=== PATIENT | male | born 1960 | race Caucasian/White ===

== ENCOUNTER 2022-03-22 20:12 | Emergency (ER) | payer MEDICARE, MEDICAID, SELFPAY ==
[2022-03-22 20:18] VITALS: PULSE 96; RESP 16; TEMP 36.6; O2SAT 98
--- NOTE | 2022-03-22 20:21 | CTR_ITS ---
PROCEDURE INFORMATION: Exam: CT Head Without Contrast Exam date and time: 03/22/2022 8:28 PM Age: 62 years old Clinical indication: Altered mental status/memory loss; Additional info: AMS TECHNIQUE: Imaging protocol: Computed tomography of the head without contrast. Radiation optimization: All CT scans at this facility use at least one of these dose optimization techniques: automated exposure control; mA and/or kV adjustment per patient size (includes targeted exams where dose is matched to clinical indication); or iterative reconstruction. COMPARISON: No relevant prior studies available. RADIATION DOSE METRICS: Total DLP (mGy-cm): 908 FINDINGS: Brain: No hemorrhage. No edema. Mild diffuse cerebral atrophy. No significant white matter disease. No mass effect. Cerebral ventricles: No ventriculomegaly. Paranasal sinuses: Visualized sinuses are unremarkable. No fluid levels. Mastoid air cells: Visualized mastoid air cells are well aerated. Bones/joints: Unremarkable. No acute fracture. Soft tissues: Unremarkable. CT/CT head wo con* [id number] IMPRESSION: No acute intracranial abnormality.
--- NOTE | 2022-03-22 20:21 | XRR_ITS ---
PROCEDURE INFORMATION: Exam: XR Chest Exam date and time: 03/22/2022 8:42 PM Age: 62 years old Clinical indication: Other: AMS; Additional info: Dyspnea TECHNIQUE: Imaging protocol: Radiologic exam of the chest. Views: 1 view. COMPARISON: No relevant prior studies available. FINDINGS: Lungs: Unremarkable. No consolidation. Pleural spaces: Unremarkable. No pleural effusion. No pneumothorax. Heart/Mediastinum: Unremarkable. No cardiomegaly. Bones/joints: Unremarkable. XR/XR chest 1V portable [id number] IMPRESSION: No acute findings.
--- NOTE | 2022-03-22 20:24 | ED_ITS ---
HPI - General Adult General: Chief complaint: Altered Mental Status Stated complaint: AMS Time Seen by Provider: 03/22/22 20:20 History of Present Illness: Patient is a 62-year-old male with history of basal intellectual challenge who presents emergency room for concerns of difficulty with chewing. Patient points to his mouth saying that he has difficulties chewing. Patient denies any nausea or vomiting, tooth ache, but reports that it feels funny to chew. Patient denies any abdominal complaints, no chest pain, shortness breath, palpitation, nausea/vomiting, fever/chills, or other focal complaints at this time. Patient denies any difficulty swallowing. No other focal complaints at this time. Onset: earlier today Duration:ongoing Location:jail Severity:mild Associated symptoms: Deny chest pain, dyspnea, nausea, rash, palpitations or vomiting Review of Systems Const: Denies: fever(s) or chills Eyes: Denies: change in vision ENMT: Reports: other (+difficulty chewing); Denies: mouth pain Card: Denies: chest pain or palpitations Resp: Denies: dyspnea or non-productive cough GI: Denies: abdominal pain, nausea, vomiting or diarrhea : Denies: dysuria Musc: Denies: extremity pain Skin/Breast: Denies: rash or new lesions Neuro: Denies: weakness in extremities Psych: Reports: other (Normal mood) Brendon/Lymph: Denies: easy bruising PFSH ED PFSH: Medical History (Updated 03/22/22 @ 21:39 by Odilon Sharif MD) Intellectual disability Social History (Updated 03/22/22 @ 21:39 by Odilon Sharif MD) Smoking and tobacco status: never smoked Alcohol intake: never Substance/Drug Use: never Physical Exam Const: COMMON NORMALS: alert HENMT: COMMON NORMALS: atraumatic HEAD & SCALP: atraumatic MOUTH: moist mucous membranes not abnormal OTHER: No trismus, range of motion of the jaw is intact, no visible tooth deformity or trauma Eye: COMMON NORMALS: EOMs intact bilaterally and conjunctivae normal CONJUNCTIVA: Yes conjunctivae normal Neck/C-Spine: COMMON NORMALS: full ROM and supple Resp: COMMON NORMALS: normal respiratory effort and clear to auscultation bilaterally AUSCULTATION: clear to auscultation bilaterally Cardio: COMMON NORMALS: regular rate RATE: regular rate GI: COMMON NORMALS: Soft to palpation and non-tender PALPATION: Yes Soft to palpation Extremity: COMMON NORMALS: full ROM Neuro: SENSORIUM/ORIENTATION: Yes alert MOTOR EXAM: No Abnormal motor strength present and Other motor observations present (no focal motor deficits) Psych: COMMON NORMALS: speech normal SPEECH: Yes normal speech MOOD & AFFECT: Yes euthymic mood Course Vital Signs: Vital signs: Vital Signs Temperature 97.9 F 03/22/22 20:18 Pulse Rate 96 03/22/22 20:18 Respiratory Rate 16 03/22/22 20:18 Pulse Oximetry 98 03/22/22 20:18 MDM - General Adult Medical Decision Making Patient is a 62-year-old male with history of basal intellectual challenge who presents emergency room for concerns of difficulty with chewing. Patient is hemodynamically stable. Lab work-up are largely within normal limit. Patient's not have sodium 127, potassium 3.4. Patient has no signs of facial trauma or tooth trauma. Patient is able to tolerate p.o. without any difficulty in the ER. Troponin with x2 with delta less than 5. EKG is nonischemic. Patient is no complaints of chest pain. He is noted have sodium 127. CT head is negative for any acute finding. X-ray chest appears to be clear. The present time, patient's been able to tolerate p.o. With no complaints of mouth pain. Patient is no acute distress. Rx salt tablet for hyponatriemia Disposition: Discharge. long-term counseled regarding diagnostic impression, treatment plan. long-term given ED strict return precautions to return for continuation, worsening, or development of new symptoms. Instructed to f/u w/ PCP regarding symptoms today. long-term verbalized understanding. Lab Data : 03/22/22 20:55 03/22/22 20:55 Radiology Impressions Chest X-Ray 03/22/22 20:21 IMPRESSION: No acute findings. Head CT 03/22/22 20:21 IMPRESSION: No acute intracranial abnormality. Laboratory Results WBC 5.4 10^3/uL (4.0-10.0) 03/22/22 20:55 RBC 3.93 10^6/uL (4.1-5.3) L 03/22/22 20:55 Hgb 11.5 g/dL (11.7-16.6) L 03/22/22 20:55 Hct 33.8 % (42.0-52.0) L 03/22/22 20:55 MCV 86.0 fl (80-94) 03/22/22 20:55 MCH 29.3 pg (28.0-34.0) 03/22/22 20:55 MCHC 34.0 g/dL (30.0-36.0) 03/22/22 20:55 RDW 12.2 % (12.1-15.1) 03/22/22 20:55 Plt Count 257 10^3/cmm (130-400) 03/22/22 20:55 MPV 9.3 fL (7.4-10.4) 03/22/22 20:55 Neut % (Auto) 60.3 % 03/22/22 20:55 Lymph % (Auto) 26.1 % 03/22/22 20:55 Hardee % (Auto) 11.7 % 03/22/22 20:55 Eos % (Auto) 0.9 % 03/22/22 20: Baso % (Auto) 0.4 % 03/22/22 20:55 Neut # (Auto) 3.26 10^3/uL (1.8-7.7) 03/22/22 20:55 Lymph # (Auto) 1.4 10^3/uL (0.8-4.8) 03/22/22 20:55 [place]ee # (Auto) 0.6 10^3/uL (0.2-0.9) 03/22/22 20:55 Eos # (Auto) 0.1 10^3/uL (0.0-0.8) 03/22/22 20: Baso # (Auto) 0.0 10^3/uL (0.0-0.1) 03/22/22 20:55 Nucleated RBC % (auto) 0 % 03/22/22: Nucleated RBCs # 0.0 /100WBC 03/22/22 20:55 Sodium 127 mmol/L (136-145) L 03/22/22 20:55 Potassium 3.4 mmol/L (3.5-5.1) L 03/22/22 20:55 Chloride 92 mmol/L (98-107) L 03/22/22 20:55 Carbon Dioxide 25 mmol/L (22-29) 03/22/22 20:55 Anion Gap 13.4 (5-19) 03/22/22 20:55 BUN 13 mg/dL (8-23) 03/22/22 20:55 Creatinine 0.7 mg/dL (0.7-1.2) 03/22/22 20:55 GFR Calculation 115.0 mL/min (90-130) 03/22/22 20:55 Glucose 97 mg/dL (65-115) 03/22/22 20:55 Calculated Osmolality 264 mOsm/kg (285-295) L 03/22/22 20:55 Calcium 9.0 mg/dL (8.5-10.5) 03/22/22 20:55 Total Bilirubin 0.4 mg/dL (0.15-1.2) 03/22/22 20:55 AST 39 U/L (0-40) 03/22/22 20:55 ALT 23 U/L (0-41) 03/22/22 20:55 Alkaline Phosphatase 64 U/L (40-130) 03/22/22 20:55 Troponin T Baseline 37 ng/L (0-15) H 03/22/22 20:55 Troponin T 120 Minute 39.89 ng/L (0-15) H 03/22/22 22:13 Delta Troponin T 2.89 ABS# (0-10) 03/22/22 22:13 Total Protein 6.8 g/dL (6.6-8.7) 03/22/22 20:55 Albumin 3.8 g/dL (3.5-5.2) 03/22/22 20:55 Globulin 3.0 g/dL (1.3-4.6) 03/22/22 20:55 Lipase 42 U/L (13-60) 03/22/22 20:55 TSH 0.07 uIU/mL (0.27-4.20) L 03/22/22 20:55 Free T4 2.41 ng/dL (0.82-1.77) H 03/22/22 20:55 Salicylates 0.6 mg/dL (3-10) L 03/22/22 20:55 Acetaminophen < 5.0 ug/mL (10-30) L 03/22/22 20:55 Imaging Data Other Imaging: Radiologist's impression: [address] [place] [address] CT Scan Report Signed Patient: Albert Campo Unit #: [id number] : 1960 Age/Sex: 62 / M ADM Date: 03/22/22 Loc: ER Room/Bed: Attending Dr: Ordering Provider/Ordering MD: Odilon Sharif MD Date of Service: 03/22/22 Procedure(s): CT head wo con* [id number] Accession Number(s): [id number] Report Number: [id number] PROCEDURE INFORMATION: Exam: CT Head Without Contrast Exam date and time: 03/22/2022 8:28 PM Age: 62 years old Clinical indication: Altered mental status/memory loss; Additional info: AMS TECHNIQUE: Imaging protocol: Computed tomography of the head without contrast. Radiation optimization: All CT scans at this facility use at least one of these dose optimization techniques: automated exposure control; mA and/or kV adjustment per patient size (includes targeted exams where dose is matched to clinical indication); or iterative reconstruction. COMPARISON: No relevant prior studies available. RADIATION DOSE METRICS: Total DLP (mGy-cm): 908 FINDINGS: Brain: No hemorrhage. No edema. Mild diffuse cerebral atrophy. No significant white matter disease. No mass effect. Cerebral ventricles: No ventriculomegaly. Paranasal sinuses: Visualized sinuses are unremarkable. No fluid levels. Mastoid air cells: Visualized mastoid air cells are well aerated. Bones/joints: Unremarkable. No acute fracture. Soft tissues: Unremarkable. CT/CT head wo con* [id number] IMPRESSION: No acute intracranial abnormality. ? Dictated By: Timothy Ambriz DO Signed By: Timothy Ambriz DO Signed Date/Time: 03/22/222105 DD/ 27 Albert Campo??62??M??1960 ? Allergy/Adv: No Known Allergies Close Head CT (Signed) Timtohy Ambriz - 03/22/22 Chest X-Ray (Signed) Timothy Ambriz - 03/22/22 Launch?[facility] [address] [place] [address] XRay Report Signed Patient: Albert Campo Unit #: [id number] : 1960 Age/Sex: 62 / M ADM Date: 03/22/22 Loc: ER Room/Bed: Attending Dr: Ordering Provider/Ordering MD: Odilon Sharif MD Date of Service: 03/22/22 Procedure(s): XR chest 1V portable [id number] Accession Number(s): [id number] Report Number: [id number] PROCEDURE INFORMATION: Exam: XR Chest Exam date and time: 03/22/2022 8:42 PM Age: 62 years old Clinical indication: Other: AMS; Additional info: Dyspnea TECHNIQUE: Imaging protocol: Radiologic exam of the chest. Views: 1 view. COMPARISON: No relevant prior studies available. FINDINGS: Lungs: Unremarkable. No consolidation. Pleural spaces: Unremarkable. No pleural effusion. No pneumothorax. Heart/Mediastinum: Unremarkable. No cardiomegaly. Bones/joints: Unremarkable. XR/XR chest 1V portable [id number] IMPRESSION: No acute findings. ? Dictated By: Timothy Ambriz DO Signed By: Timothy Ambriz DO Signed Date/Time: 03/22/222103 DD/ 41 Discharge Plan Discharge Patient Disposition: Home Clinical Impression: Decrease in appetite Condition: Stable Discharge Orders: Discharge ED (Routine); Ordered 03/22/22 Ordered By: Odilon Sharif Discharge Diet: Advance as tolerated Discharge Activity: Increase activity as tolerated Activity Restrictions/Additional Instructions: Come back if you have any new or concerning issues. Coding Level of Care Code ED Dietary Services Manager for Chg Fwd Exam Comprehensive
--- NOTE | 2022-03-22 20:41 | ECG_ITS ---
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 Measurements Intervals [place] Rate: 81 P: 67 [place]: 162 QRS: 35 QRSD: 99 T: 55 QT: 379 QTc: 441 Interpretive Statements SINUS RHYTHM No previous ECG available for comparison Electronically Signed On 03-24-2022 22:02:30 CDT by Jose Luis Hutchison M.D. [id number]
[2022-03-22 21:06] LABS: Basophils % 0.4 %; Eosinophils # 0.1 10^3/uL (0.0-0.8); Eosinophils % 0.9 %; Hematocrit 33.8 % (42.0-52.0); Hemoglobin 11.5 g/dL (11.7-16.6); Lymphocytes # 1.4 10^3/uL (0.8-4.8); Lymphocytes % 26.1 %; Mean Corpuscular Hemoglobin 29.3 pg (28.0-34.0); Mean Platelet Volume 9.3 fL (7.4-10.4); Monocytes # 0.6 10^3/uL (0.2-0.9); Monocytes % 11.7 %; Neutrophils # 3.26 10^3/uL (1.8-7.7); Neutrophils % 60.3 %; Nucleated Red Blood Cells % 0 %; Platelet Count 257 10^3/cmm (130-400); Red Blood Count 3.93 10^6/uL (4.1-5.3); Red Cell Distribution Width 12.2 % (12.1-15.1); White Blood Count 5.4 10^3/uL (4.0-10.0)
[2022-03-22 21:23] LABS: Troponin(5th) Baseline 37 ng/L (0-15)
[2022-03-22 21:32] LABS: Alanine Aminotransferase 23 U/L (0-41); Albumin Level 3.8 g/dL (3.5-5.2); Alkaline Phosphatase 64 U/L (40-130); Anion Gap 13.4 (5-19); Aspartate Amino Transferase 39 U/L (0-40); Blood Urea Nitrogen 13 mg/dL (8-23); Carbon Dioxide 25 mmol/L (22-29); Chloride 92 mmol/L (98-107); Glucose 97 mg/dL (65-115); Lipase 42 U/L (13-60); Osmolality Calculated 264 mOsm/kg (285-295); Potassium 3.4 mmol/L (3.5-5.1); Salicylate 0.6 mg/dL (3-10); Sodium 127 mmol/L (136-145); Thyroid Stimulating Hormone 0.07 uIU/mL (0.27-4.20); Total Bilirubin 0.4 mg/dL (0.15-1.2); Total Protein 6.8 g/dL (6.6-8.7)
[2022-03-22 21:34] LABS: Acetaminophen < 5.0 ug/mL (10-30)
--- NOTE | 2022-03-22 22:12 | PC.NURSE ---
DONAVAN Johnson from facility called for update, updated on POC to return to facility, no acute changes seen on head CT
--- NOTE | 2022-03-22 22:14 | ECG_ITS ---
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 Measurements Intervals [place] Rate: 68 P: 54 [place]: 191 QRS: 35 QRSD: 107 T: 42 QT: 383 QTc: 410 Interpretive Statements SINUS RHYTHM Compared to ECG 03/22/2022 20:41:09 No significant changes Electronically Signed On 03-24-2022 22:11:26 CDT by Jose Luis Hutchison M.D. [id number]
[2022-03-22 22:18] LABS: Free T4 Free Thyroxine 2.41 ng/dL (0.82-1.77)
[2022-03-22 22:44] LABS: Troponin 5 2HR 39.89 ng/L (0-15)
[2022-03-22 22:47] LABS: Troponin 5 2HR Delta 2.89 ABS# (0-10)
[2022-03-22 23:11] VITALS: BP 145/89; PULSE 75; RESP 15; TEMP 36.6; O2SAT 96
--- NOTE | 2022-03-22 23:13 | PC.NURSE ---
Patient sitting up in wheel chair waiting for transportation for return, patient awake responds appropriately
[2022-03-23 00:25] VITALS: PULSE 75; RESP 16; TEMP 36.6; O2SAT 96
== END 2022-03-23 00:27 | disposition home or self-care (01) ==
PROVIDERS: Emergency Provider Emergency Medicine
DX: R63.0 Anorexia (principal)
CPT/HCPCS: 36415; 70450; 71045; 80053; 80307; 83690; 84439; 84443; 84484; 85025; 93005; 99285

== ENCOUNTER 2022-04-03 17:23 | Emergency (ER) | payer MEDICARE, MEDICAID, SELFPAY ==
--- NOTE | 2022-04-03 17:28 | XRR_ITS ---
PROCEDURE INFORMATION: Exam: XR Chest Exam date and time: 04/03/2022 5:45 PM Age: 62 years old Clinical indication: Dyspnea; Additional info: Dyspena TECHNIQUE: Imaging protocol: Radiologic exam of the chest. Views: 1 view. COMPARISON: CR (CHEST, ) 03/22/2022 8:42 PM FINDINGS: Lungs: Unremarkable. No consolidation. Pleural spaces: Unremarkable. No pleural effusion. No pneumothorax. Heart/Mediastinum: Unremarkable. No cardiomegaly. Bones/joints: Unremarkable. XR/XR chest 1V portable [id number] IMPRESSION: No acute findings.
[2022-04-03 17:38] VITALS: BP 121/75; PULSE 80; RESP 16; TEMP 36.2; O2SAT 98
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
[2022-04-03 18:06] LABS: Basophils % 0.6 %; Eosinophils # 0.1 10^3/uL (0.0-0.8); Eosinophils % 1.1 %; Hematocrit 34.1 % (42.0-52.0); Hemoglobin 11.2 g/dL (11.7-16.6); Lymphocytes # 1.4 10^3/uL (0.8-4.8); Lymphocytes % 26.4 %; Mean Corpuscular HGB Conc 32.8 g/dL (30.0-36.0); Mean Corpuscular Hemoglobin 28.5 pg (28.0-34.0); Mean Corpuscular Volume 86.8 fl (80-94); Mean Platelet Volume 9.8 fL (7.4-10.4); Monocytes % 17.7 %; Neutrophils # 2.89 10^3/uL (1.8-7.7); Neutrophils % 53.8 %; Nucleated Red Blood Cells % 0 %; Platelet Count 229 10^3/cmm (130-400); Red Blood Count 3.93 10^6/uL (4.1-5.3); Red Cell Distribution Width 12.5 % (12.1-15.1); White Blood Count 5.4 10^3/uL (4.0-10.0)
--- NOTE | 2022-04-03 18:10 | ECG_ITS ---
[facility] Test Date: 2022-04-03 Pat Name: Albert Campo Department: Room: Gender: Male Child Monitor: : 1960 Requested By: Pietro Dc Order Number: [id number] Sanchez MD: Raul Wolfe M.D. Measurements Intervals [place] Rate: 78 P: 72 PA: 172 QRS: 30 QRSD: 100 T: 56 QT: 373 QTc: 425 Interpretive Statements SINUS RHYTHM Compared to ECG 03/22/2022 22:14:46 No significant changes Electronically Signed On 04-04-2022 7:07:38 CDT by Raul Wolfe M.D. [email or web address] Fashion Loungesinging river gulfportConnectM Technology Solutionslake county memorial [facility].B[employer] Environmental/store/[id number]
[2022-04-03 18:32] VITALS: BP 129/85; PULSE 79; RESP 16; O2SAT 98
[2022-04-03 19:00] LABS: Acetaminophen < 5.0 ug/mL (10-30); Alanine Aminotransferase 14 U/L (0-41); Albumin Level 3.8 g/dL (3.5-5.2); Alcohol Level < 10 mg/dL (0-10); Alkaline Phosphatase 61 U/L (40-130); Aspartate Amino Transferase 20 U/L (0-40); Blood Urea Nitrogen 12 mg/dL (8-23); Carbon Dioxide 26 mmol/L (22-29); Chloride 99 mmol/L (98-107); Glomerular Filtration Rate 86.1 mL/min (90-130); Glucose 113 mg/dL (65-115); Osmolality Calculated 281 mOsm/kg (285-295); Salicylate < 0.3 mg/dL (3-10); Sodium 135 mmol/L (136-145); Thyroid Stimulating Hormone 0.04 uIU/mL (0.27-4.20); Total Bilirubin 0.2 mg/dL (0.15-1.2); Total Protein 6.8 g/dL (6.6-8.7)
[2022-04-03 19:45] LABS: Add Urine Microscopic? NO; Charge for UA Resulting for Rev
[2022-04-03 19:52] LABS: Bilirubin Urine Neg (Negative); Blood Urine Neg (Negative); Glucose Urine UA Norm (Normal); Ketones Urine Negative (Negative); Leukocyte Esterase Urine Negative (Negative); Nitrate Urine Negative (Negative); Protein Urine Neg (Negative); Specific Gravity, Urine 1.005 (1.005-1.030); Urine Appearance Clear (CLEAR); Urine Color Yellow (Yellow); Urobilinogen Urine Norm (Negative); pH Urine 7 (5-7)
[2022-04-03 20:00] LABS: Amphetamines Screen Urine Negative (Negative); Barbiturates Screen Urine Negative (Negative); Benzodiazepines Screen Urine Negative (Negative); Cocaine Screen Urine Negative (Negative); Opiate Screen Urine Negative (Negative); PCP Screen Urine Negative (Negative); THC Screen Urine Negative (Negative)
--- NOTE | 2022-04-03 20:14 | PC.NURSE ---
report called to [facility]. spoke with gabby and she advised they would call their transportation.
[2022-04-03] MEDS: LORazepam 1 mg Tablet PO (20:19)
== END 2022-04-03 21:55 | disposition home or self-care (01) ==
PROVIDERS: Family Medicine; Emergency Provider Emergency Medicine
DX: R45.6 Violent behavior (principal)
CPT/HCPCS: 71045; 80053; 80306; 80307; 81003; 84443; 85025; 93005; 99285

== ENCOUNTER → 2023-01-21 08:09 | Outpatient (BNVA) | payer MEDICARE, MEDICAID, SELFPAY | PROVIDERS: Visit Provider Podiatrist Foot & Ankle Surgery | DX: I73.9 Peripheral vascular disease, unspecified (principal); L60.3 Nail dystrophy | CPT/HCPCS: 11721; 99203 ==

== ENCOUNTER → 2023-06-10 10:16 | Outpatient (BNVA) | payer MEDICARE, MEDICAID, SELFPAY | PROVIDERS: PCP Family Medicine; Visit Provider Physician Assistant | DX: M51.36 Other intervertebral disc degeneration, lumbar region (principal); K56.41 Fecal impaction | CPT/HCPCS: 72100; 99203 ==

== ENCOUNTER → 2023-09-17 09:04 | Outpatient (BNVA) | payer MEDICARE, MEDICAID, SELFPAY | PROVIDERS: PCP Family Medicine; Visit Provider Podiatrist Foot & Ankle Surgery | DX: I73.9 Peripheral vascular disease, unspecified (principal); L60.3 Nail dystrophy | CPT/HCPCS: 99213 ==

== ENCOUNTER → 2023-12-09 14:33 | Outpatient (BNVA) | payer MEDICARE, MEDICAID, SELFPAY | PROVIDERS: PCP Family Medicine; Visit Provider Podiatrist Foot & Ankle Surgery | DX: I73.9 Peripheral vascular disease, unspecified; L60.3 Nail dystrophy | CPT/HCPCS: 73630; 99213 ==

== ENCOUNTER 2023-12-23 14:10 | Observation (INO) | payer MEDICARE, MEDICAID, SELFPAY ==
[2023-12-23 14:11] VITALS: BP 132/79; PULSE 82; RESP 16; TEMP 36.8; O2SAT 95; BMI 28.3
--- NOTE | 2023-12-23 14:14 | CT_ITS ---
WS: [id number] CT HEAD TECHNIQUE: Noncontrast CT of the head obtained from the skullbase to the vertex. CLINICAL INFORMATION: seizure COMPARISON: CT 03/22/2022 DLP: 1047.[address] scans at [facility] use at least one of these dose optimization techniques: automated e xposure control; mA and/or kV adjustment per patient size (includes targeted exams where dose is matc hed to clinical indication); or iterative reconstruction. FINDINGS: No evidence of intracranial hemorrhage or mass effect. Ventricular system and basal cisterns are kitchen nt. Mild small vessel changes with mild parenchymal volume loss. No extra-axial fluid collections. No evidence of mass or mass effect. Vascular calcification. Mild mucosal thickening paranasal sinuses. Chronic opacification of the LEFT greater than RIGHT masto id air cells and LEFT middle ear. CT/CT head wo con* 01789 IMPRESSION: 1. No evidence of intracranial hemorrhage or mass effect. 2. Mild small vessel changes. Mild parenchymal volume loss. 3. Chronic opacification of the LEFT greater than RIGHT mastoid air cells and LEFT middle ear. 4. No acute intracranial findings.
--- NOTE | 2023-12-23 14:15 | ECG_ITS ---
[facility] Test Date: 2023-12-23 Pat Name: Albert Campo Department: Room: Gender: Male Microwave Radio Technician: : 1960 Requested By: Boogie Bronson Order Number: [id number] Sanchez MD: Nino Bryant M.D. Measurements Intervals [place] Rate: 81 P: 81 AL: 195 QRS: 45 QRSD: 108 T: 67 QT: 360 QTc: 418 Interpretive Statements SINUS RHYTHM Compared to ECG 04/03/2022 18:10:26 No significant changes Electronically Signed On 12-23-2023 21:38:21 CDT by Nino Bryant M.D. [email or web address] Networkcleveland clinic avon hospitalFusion Sheep/store/NU/[id number] f
--- NOTE | 2023-12-23 14:19 | ED_ITS ---
HPI - Seizure 2 General: Chief Complaint: Seizure Stated Complaint: seizure Time Seen by Provider: 12/23/23 14:11 Source: patient Mode of arrival: ambulatory Limitations: no limitations History of Present Illness: HPI Narrative: 63-year-old male is here from nursing [facility] he has a history of autism along with intellectual disabilities he had a witnessed seizure at the [facility] per [facility] [place] stated postictal but he is now at his baseline he is answering my questions appropriately he has no complaints no recent known illness. Associated symptoms: Deny chest pain, chills or fever(s) Review of Systems 2 Const: Denies: fever(s), chills, body aches or change in appetite Eyes: Denies: blurry vision or eye discomfort ENMT: Denies: throat pain or dental pain Card: Denies: chest pain Resp: Denies: dyspnea GI: Denies: abdominal pain, nausea, vomiting or diarrhea Musc: Denies: neck pain or back pain Skin/Breast: Denies: rash Neuro: Reports: seizure-like activity; Denies: headache(s) PFSH ED 2 PFSH: Medical History Intellectual disability Social History Smoking and tobacco/nicotine status: never used tobacco/nicotine Alcohol intake: never Substance/Drug Use: never Physical Exam 2 Const: COMMON NORMALS: no acute distress, patient oriented x3 and healthy appearing HENMT: COMMON NORMALS: normocephalic and atraumatic HEAD & SCALP: n ormocephalic and atraumatic Eye: COMMON NORMALS: Equal, round and reactive pupils present and EOMs intact bilaterally PUPIL: Yes Equal, round and reactive pupils present Neck/C-Spine: COMMON NORMALS: full ROM and supple Chest: COMMONS NORMALS: normal inspection of the chest and normal palpation of entire chest wall Resp: COMMON NORMALS: normal respiratory effort, No retractions, No use of accessory muscles and clear to auscultation bilaterally AUSCULTATION: clear to auscultation bilaterally Cardio: COMMON NORMALS: regular rate, regular rhythm and No murmurs present (Cardio) RATE: regular rate RHYTHM: regular rhythm GI: COMMON NORMALS: Normal to inspection, nondistended, normoactive bowel sounds present, Soft to palpation, non-tender and no masses PALPATION: Yes Soft to palpation Extremity: COMMON NORMALS: normal to inspection and full ROM Neuro: COMMON NORMALS: patient oriented x3, moves all extremities and no focal motor deficits Psych: COMMON NORMALS: mental status grossly normal, Normal thought process present and cooperative THOUGHT PROCESS: Normal thought process present Skin: COMMON NORMALS: no rashes or lesions noted and no wounds GENERAL SKIN EXAM: no rashes or lesions noted Course 2 Vital Signs: Vital signs: Vital Signs Temperature 98.3 F 12/23/23 14:11 Pulse Rate 84 12/23/23 14:22 Respiratory Rate 16 12/23/23 14:22 Blood Pressure 132/79 12/23/23 14:22 Pulse Oximetry 97 12/23/23 14:22 Oxygen Delivery Me thod Room Air 12/23/23 14:22 MDM - Seizure MDM Narrative Medical decision making narrative: Patient presents here from [facility] after a seizure he is hyponatremic it can cause a seizure he is at his baseline currently will give him IV fluids spoke to the hospitalist will admit at this time. His Depakote level is in therapeutic range Lab Data 12/23/23 14:27 12/23/23 14:27 Labs: Radiology Impressions Head CT 12/23/23 14:14 IMPRESSION: 1. No evidence of intracranial hemorrhage or mass effect. 2. Mild small vessel changes. Mild parenchymal volume loss. 3. Chronic opacification of the LEFT greater than RIGHT mastoid air cells and LEFT middle ear. 4. No acute intracranial findings. Laboratory Results WBC 14.10 10^3/uL (3.29-11.43) H 12/23/23 14:27 RBC 3.55 10^6/uL (3.85-5.65) L 12/23/23 14:27 Hgb 10.70 g/dL (11.27-16.99) L 12/23/23 14:27 Hct 31.1 % (37-53) L 12/23/23 14:27 MCV 87.6 fl (82-101) 12/23/23 14:27 MCH 30.1 pg (27-33) 12/23/23 14: MCHC 34.4 g/dL (30-55) 12/23/23 14:27 RDW 12.8 % (12.1-15.1) 12/23/23 14:27 Plt Count 220 10^3/cmm (157-399) 12/23/23 14:27 MPV 8.6 fL (7.4-10.4) 12/23/23 14:27 Neut % (Auto) 85.4 % 12/23/23 14:27 Lymph % (Auto) 7.8 % 12/23/23 14:27 [place] % (Auto) 5.9 % 12/23/23 14:27 Eos % (Auto) 0.2 % 12/23/23 14:27 Baso % (Auto) 0.3 % 12/23/23 14:27 Neut # (Auto) 12.04 10^3/uL (1.8-7.7) H 12/23/23 14: Lymph # (Auto) 1.1 10^3/uL (0.8-4.8) 12/23/23 14:27 [place] # (Auto) 0.8 10^3/uL (0.2-0.9) 12/23/23 14: Eos # (Auto) 0.0 10^3/uL (0.0-0.8) 12/23/23 14:27 Baso # (Auto) 0.0 10^3/uL (0.0-0.1) 12/23/23 14: Nucleated RBC % (auto) 0 % 12/23/23 14: Nucleated RBCs # 0.0 /100WBC 12/23/23 14:27 Sodium 123 mmol/L (136-145) L 12/23/23 14:27 Potassium 4.0 mmol/L (3.5-5.1) 12/23/23 14:27 Chloride 89 mmol/L (98-107) L 12/23/23 14:27 Carbon Dioxide 22 mmol/L (22-29) 12/23/23 14:27 Anion Gap 16.0 (5-19) 12/23/23 14:27 BUN 19 mg/dL (8-23) 12/23/23 14:27 Creatinine 1.1 mg/dL (0.7-1.2) 12/23/23 14:27 GFR Calculation 68.1 mL/min (90-130) L 12/23/23 14:27 Glucose 87 mg/dL (65-115) 12/23/23 14:27 Calculated Osmolality 258 mOsm/kg (285-295) L 12/23/23 14:27 Calcium 8.4 mg/dL (8.5-10.5) L 12/23/23 14:27 Total Bilirubin 0.4 mg/dL (0.15-1.2) 12/23/23 14:27 AST 18 U/L (0-40) 12/23/23 14:27 ALT 10 U/L (0-41) 12/23/23 14:27 Alkaline Phosphatase 61 U/L (40-130) 12/23/23 14:27 Total Protein 6.7 g/dL (6.6-8.7) 12/23/23 14:27 Albumin 3.8 g/dL (3.5-5.2) 12/23/23 14:27 Globulin 2.9 g/dL (1.3-4.6) 12/23/23 14:27 Valproic Acid 52.3 ug/mL (50-100) 12/23/23 14:27 All radiology interpretation(s) finalized by discharge EKG Data EKG 1: Attestation: I personally reviewed and interpreted this EKG as follows: EKG interpretation date: 12/23/23 EKG interpretation time: 14:15 Interpretation: nsr hr [address] or t wave abnormalities qrs 108 qtc 397 Discharge Plan Discharge Patient Disposition: Admitted As Inpatient Clinical Impression: Seizure, Hyponatremia Condition: Stable Coding Level of Care Code ED Chemist Food for Nova Meek
[2023-12-23 14:22] VITALS: BP 132/79; PULSE 84; RESP 16; O2SAT 97
[2023-12-23 14:37] LABS: Basophils % 0.3 %; Eosinophils % 0.2 %; Hematocrit 31.1 % (37-53); Lymphocytes # 1.1 10^3/uL (0.8-4.8); Lymphocytes % 7.8 %; Mean Corpuscular HGB Conc 34.4 g/dL (30-55); Mean Corpuscular Hemoglobin 30.1 pg (27-33); Mean Corpuscular Volume 87.6 fl (82-101); Mean Platelet Volume 8.6 fL (7.4-10.4); Monocytes # 0.8 10^3/uL (0.2-0.9); Monocytes % 5.9 %; Neutrophils # 12.04 10^3/uL (1.8-7.7); Neutrophils % 85.4 %; Nucleated Red Blood Cells % 0 %; Platelet Count 220 10^3/cmm (157-399); Red Blood Count 3.55 10^6/uL (3.85-5.65); Red Cell Distribution Width 12.8 % (12.1-15.1)
[2023-12-23 14:52] LABS: Alanine Aminotransferase 10 U/L (0-41); Albumin Level 3.8 g/dL (3.5-5.2); Alkaline Phosphatase 61 U/L (40-130); Aspartate Amino Transferase 18 U/L (0-40); Blood Urea Nitrogen 19 mg/dL (8-23); Calcium 8.4 mg/dL (8.5-10.5); Carbon Dioxide 22 mmol/L (22-29); Chloride 89 mmol/L (98-107); Creatinine Clr Calc Pharmacy 67.5733; Globulin 2.9 g/dL (1.3-4.6); Glomerular Filtration Rate 68.1 mL/min (90-130); Glucose 87 mg/dL (65-115); Osmolality Calculated 258 mOsm/kg (285-295); Sodium 123 mmol/L (136-145); Total Bilirubin 0.4 mg/dL (0.15-1.2); Total Protein 6.7 g/dL (6.6-8.7); Valproic Acid Level 52.3 ug/mL (50-100)
[2023-12-23] MEDS: sodium chloride 0.9% 1,000 ML 999 ML IV (15:24)
[2023-12-23 16:00] VITALS: BP 137/75; PULSE 82; O2SAT 98
[2023-12-23 16:46] VITALS: BMI 26.8
[2023-12-23 16:57] VITALS: BP 137/75; PULSE 82; RESP 16; TEMP 36.8; O2SAT 98
--- NOTE | 2023-12-23 18:26 | P.HP_ITS ---
Providers/Chief Complaint 2 Admitting Physician: Donte Barbosa Primary Care Provider: Matt Mae MD Chief Complaint: seizure History of Present Illness 63-year-old gentleman with history of neurodegenerative disorders, autism, intellectual disability, without known history of epilepsy, on Depakote, was brought in after an episode of seizure. In ER also noted to have hyponatremia, sodium 123. He is unable to provide review of systems or history. Going off on tangents, stating that he had urinated himself yesterday though he was not supposed to, states he got a new T-shirt and new pants. Review of Systems 2 General: Reports: ROS unobtainable due to medical condition Medications/Allergies Home Medications Medication Instructions Recorded Confirmed Last Taken Type celecoxib 200 mg capsule (Celebrex) 200 mg PO DAILY 09/17/23 12/23/23 Unknown History levothyroxine 125 mcg capsule 125 mcg PO DAILY hypothyroidism 09/17/23 12/23/23 Unknown History Senna Plus 2 tab PO DAILY Constipation 12/23/23 12/23/23 Unknown History acetaminophen 325 mg PO Q6H PRN Pain 12/23/23 12/23/23 Unknown History acetaminophen 650 mg PO BEDTIME Low Back Pain 12/23/23 12/23/23 Unknown History amitriptyline 25 mg tablet 50 mg PO BEDTIME 12/23/23 12/23/23 Unknown History calcium polycarbophil 625 mg 625 mg PO DAILY constipation 12/23/23 12/23/23 Unknown History tablet (FiberCon) cetirizine 10 mg tablet (Zyrtec) 10 mg PO DAILY 12/23/23 12/23/23 Unknown History divalproex 500 mg tablet,extended 1,000 mg PO BEDTIME 12/23/23 12/23/23 Unknown History release 24 hr famotidine 20 mg tablet 20 mg PO BID 12/23/23 12/23/23 Unknown History fluticasone propionate 50 1 spray intranasal DAILY Season 12/23/23 12/23/23 Unknown History mcg/actuation nasal Allergic Rhinitis spray,suspension gabapentin 300 mg capsule 300 mg PO BID 12/23/23 12/23/23 Unknown History lorazepam 1 mg tablet 1 mg PO TID 12/23/23 12/23/23 Unknown History melatonin 5 mg tablet 10 mg PO BEDTIME Insomnia 12/23/23 12/23/23 Unknown History naloxone 2 mg/2 mL syringe kit 2 mg IM PRN PRN Opiod Overdose 12/23/23 12/23/23 Unknown History olanzapine 20 mg tablet 20 mg PO BEDTIME Schizophrenia 12/23/23 12/23/23 Unknown History polyethylene glycol 3350 17 17 g PO DAILY Constipation 12/23/23 12/23/23 Unknown History gram/dose oral powder (Miralax) sodium chloride 1,000 mg soluble 1,000 mg PO TID Hyponatremia 12/23/23 12/23/23 Unknown History tablet vilazodone 40 mg tablet 40 mg PO AC Anxiety 12/23/23 12/23/23 Unknown History Allergies Allergy/AdvReac Type Severity Reaction Status Date / Time No Known Allergies Allergy Verified 12/09/23 14:12 PFSH Acute 2 PFSH: Medical History Autistic disorder Schizophrenia, unspecified Tinea unguium Chronic kidney disease (CKD) Chronic pulmonary edema Intellectual disability Social History Smoking and tobacco/nicotine status: never used tobacco/nicotine Alcohol intake: never Substance/Drug Use: never Vitals/I&O/Wt Last Vital Signs Temp 98.3 F 12/23/23 16:57 Pulse 82 12/23/23 16:57 Resp 16 12/23/23 16:57 BP 137/75 12/23/23 16:57 Pulse Ox 98 12/23/23 16:57 O2 Del Method Room Air 12/23/23 16:00 12/23/23 12/23/23 12/23/23 06:59 14:59 22:59 Intake Total 1000 / 1000 Balance 1000 / 1000 Weight last 48 hrs Weight 75.296 kg Weight 77.111 kg Physical Exam 2 Narrative: Sitting up in bed. Interacts to a limited extent, going off on tangents. Limited cooperation with history/exam. Const: COMMON NORMALS: alert ORIENTATION/CONSCIOUSNESS: Yes awake HENMT: COMMON NORMALS: oropharynx normal Neck/C-Spine: COMMON NORMALS: no JVD Resp: COMMON NORMALS: normal respiratory effort and clear to auscultation bilaterally AUSCULTATION: clear to auscultation bilaterally Cardio: COMMON NORMALS: no JVD, regular rhythm, S1 normal heart sound present, S2 normal heart sound present and No murmurs present (Cardio) RHYTHM: regular rhythm HEART SOUNDS: S1 normal heart sound present and S2 normal heart sound present GI: COMMON NORMALS: Normal to inspection, nondistended, normoactive bowel sounds present, Soft to palpation and non-tender PALPATION: Yes Soft to palpation Extremity: COMMON NORMALS: no joint enlargement and no pedal edema Neuro: COMMON NORMALS: moves all extremities SENSORIUM/ORIENTATION: Yes alert Skin: COMMON NORMALS: no rashes or lesions noted GENERAL SKIN EXAM: no rashes or lesions noted Data 12/23/23 14:27 12/23/23 14:27 A&P Assessment and plan (1) Hyponatremia: Severe hyponatremia sodium low at 123 with systemic symptoms, unknown duration, previously 135 back in March. Does not appear to have a clear cause, difficult to state whether hyponatremia is complicated by seizure, possible. He does appear to be on sodium chloride tablets 1000 mg p[address] of the head without evidence for intracranial hemorrhage or mass effect. No acute intracranial findings. Incidentally noted chronic opacification of left greater than right mastoid air cells and left middle ear. Will request urine sodium, urine osmolality. Reviewed vitals, CBC, CMP, head, ER note, discussed with ER provider. He appears to have good appetite. Has been requesting for food. Resume regular diet. Resume sodium chloride 1 g p.o. 3 times daily. Reviewed Depakote level, therapeutic. Received sodium chloride challenge. Hold off additional fluids for now to avoid rapid changes in sodium. Recheck sodium level. Monitor intake output for any polydipsia. Consider effect of amitriptyline, olanzapine, vilazodone. (2) Seizure: Reviewed Depakote level. Continue Depakote. Unclear reason for seizure. Would suspect possible complication of hyponatremia. Would benefit from follow-up MRI, EEG, follow-up with neurology, however, not sure that he will be able to cooperate with MRI. Plan Intellectual disability, autism, schizophrenia, continue Ativan, olanzapine, vilazodone. Amitriptyline. Reported severe behavioral disturbances without medications. CKD: Reassess kidney function Chronic pulmonary edema: Monitor oxygenation Attestations 2 Medical Necessity Statement*: Place in observation for additional assessment management of severe symptomatic hyponatremia with systemic symptoms, seizure in a gentleman with intellectual stability, autism, schizophrenia. Diagnoses Hyponatremia E87.1 Seizure R56.9
[2023-12-23 19:06] LABS: Thyroid Stimulating Hormone 46.12 uIU/mL (0.27-4.20)
[2023-12-23 20:00] VITALS: BP 154/82; PULSE 101; RESP 18; TEMP 36.3; O2SAT 96
[2023-12-23] MEDS: divalproex ER 500 mg Tablet (24H) 1000 MG PO (20:32)
[2023-12-23] MEDS: LORazepam 1 mg Tablet PO (20:32)
[2023-12-23] MEDS: sodium chloride 1 gm Tablet PO (20:32)
[2023-12-23] MEDS: amitriptyline 25 mg Tablet 50 MG PO (20:32)
[2023-12-23] MEDS: OLANZapine 10 mg TABLET 20 MG PO (20:33)
[2023-12-23 20:59] LABS: Sodium 128 mmol/L (136-145)
[2023-12-23 23:37] LABS: Sodium 132 mmol/L (136-145)
[2023-12-24] VITALS: BP 125/80; PULSE 83; RESP 18; TEMP 36.6; O2SAT 98
[2023-12-24 01:41] LABS: Urine Random Sodium 27 mmol/L
[2023-12-24 04:00] VITALS: BP 159/82; PULSE 81; RESP 17; TEMP 36.6; O2SAT 97
[2023-12-24 05:13] LABS: Basophils # 0.1 10^3/uL (0.0-0.1); Basophils % 0.4 %; Eosinophils # 0.1 10^3/uL (0.0-0.8); Eosinophils % 0.4 %; Hematocrit 32.6 % (37-53); Lymphocytes # 1.8 10^3/uL (0.8-4.8); Lymphocytes % 12.9 %; Mean Corpuscular HGB Conc 33.1 g/dL (30-55); Mean Corpuscular Hemoglobin 29.3 pg (27-33); Mean Corpuscular Volume 88.6 fl (82-101); Mean Platelet Volume 9.1 fL (7.4-10.4); Monocytes # 0.7 10^3/uL (0.2-0.9); Monocytes % 4.7 %; Neutrophils # 11.51 10^3/uL (1.8-7.7); Neutrophils % 81.2 %; Nucleated Red Blood Cells % 0 %; Platelet Count 254 10^3/cmm (157-399); Red Blood Count 3.68 10^6/uL (3.85-5.65); Red Cell Distribution Width 13.1 % (12.1-15.1); White Blood Count 14.15 10^3/uL (3.29-11.43)
[2023-12-24 05:42] LABS: Blood Urea Nitrogen 17 mg/dL (8-23); Calcium 8.5 mg/dL (8.5-10.5); Carbon Dioxide 21 mmol/L (22-29); Chloride 94 mmol/L (98-107); Creatinine Clr Calc Pharmacy 82.1293; Glomerular Filtration Rate 85.8 mL/min (90-130); Glucose 103 mg/dL (65-115); Magnesium 1.8 mg/dL (1.7-2.3); Osmolality Calculated 270 mOsm/kg (285-295); Phosphorus 3.1 mg/dL (2.5-4.5); Sodium 129 mmol/L (136-145)
[2023-12-24 05:48] LABS: Anion Gap 17.9 (5-19); Potassium 3.9 mmol/L (3.5-5.1)
[2023-12-24 07:07] VITALS: BP 151/90; PULSE 82; RESP 18; TEMP 36.4; O2SAT 97
[2023-12-24] MEDS: LORazepam 1 mg Tablet PO (10:27)
[2023-12-24] MEDS: gabapentin 300 mg Capsule PO (10:27)
[2023-12-24] MEDS: polyethylene glycol 3350 Pkt 17 gm PO (10:27)
[2023-12-24] MEDS: sodium chloride 1 gm Tablet PO (10:27)
[2023-12-24] MEDS: cetirizine 10 mg Tablet PO (10:27)
[2023-12-24] MEDS: levothyroxine 125 mcg Tablet PO (10:27)
[2023-12-24] MEDS: CELEcoxib 200 mg Capsule PO (10:27)
[2023-12-24] MEDS: calcium polycarbophil 625 mg Tablet PO (10:27)
[2023-12-24] MEDS: famotidine 20 mg Tablet PO (10:28)
[2023-12-24] MEDS: fluticasone nasal spray 16gm Btl 1 SPRAY INTRANASAL (10:28)
[2023-12-24 10:33] VITALS: BP 142/82; PULSE 86; RESP 17; TEMP 36.4; O2SAT 99
--- NOTE | 2023-12-24 12:36 | PC.NURSE ---
This nurse had tried to call report 4 times to [facility]. Unable to get through to facility due to busy signal
--- NOTE | 2023-12-24 13:09 | PM.DCS ---
Discharge Providers Date of Admission: 12/23/23 16:24 Date of Discharge: December 24, 2023 Attending Provider at Admission: Donte Barbosa Attending Provider at Discharge: Donte Barbosa Primary Care Provider: Matt Mae MD Diagnoses at Discharge Discharge Diagnosis (1) Hyponatremia: Status: Acute (2) Seizure: Status: Acute Reason for Visit Reason for Visit: seizure Hospital Course Hospital Course 63-year-old gentleman with history of neurodivergent disorders, autism, intellectual disability, without known history of same, on Depakote, came in after a seizure episode, was found to be severely hyponatremic, received fluid bolus, restarted on sodium chloride, please maintain fluid restriction of less than 1.5 L/day as he does appear to have component of polydipsia, sodium improved up to 129. Without any further seizure. CT of the head without acute abnormality. He is asked to follow-up for additional assessment with neurology. In case of recurrent/persistent hyponatremia consider adjustment of his medications with risk with amitriptyline, olanzapine, vilazodone. Additionally noted TSH elevated to 46.12. Levothyroxine dose adjusted up to 137. Please follow-up thyroid function in 3 to 4 weeks, reassess if further adjustment is needed. Discussed also with his guardian. Physical Exam Narrative: Sitting up in bed. He tells me that he is doing all right. Tells me that he likes to play [employer]. Limited cooperation with history/exam. Const: COMMON NORMALS: alert ORIENTATION/CONSCIOUSNESS: Yes awake HENMT: COMMON NORMALS: oropharynx normal Neck/C-Spine: COMMON NORMALS: no JVD Resp: COMMON NORMALS: normal respiratory effort and clear to auscultation bilaterally AUSCULTATION: clear to auscultation bilaterally Cardio: COMMON NORMALS: no JVD, regular rhythm, S1 normal heart sound present, S2 normal heart sound present and No murmurs present (Cardio) RHYTHM: regular rhythm HEART SOUNDS: S1 normal heart sound present and S2 normal heart sound present GI: COMMON NORMALS: Normal to inspection, nondistended, normoactive bowel sounds present, Soft to palpation and non-tender PALPATION: Yes Soft to palpation Extremity: COMMON NORMALS: no joint enlargement and no pedal edema Neuro: COMMON NORMALS: moves all extremities SENSORIUM/ORIENTATION: Yes alert Skin: COMMON NORMALS: no rashes or lesions noted GENERAL SKIN EXAM: no rashes or lesions noted Discharge Data Studies Completed and Pending Completed Studies During Hospitalization Category Date Time Status CT head wo con* [id number] Stat Cat Scan 12/23/23 14:14 Completed Pending at discharge Category Date Time Status Basic Metabolic Panel AM LABS Lab 12/25/23 04:00 Ordered Basic Metabolic Panel AM LABS Lab 12/26/23 04:00 Ordered Complete Blood Count w/Auto AM LABS Lab 12/25/23 04:00 Ordered Complete Blood Count w/Auto AM LABS Lab 12/26/23 04:00 Ordered Osmolality Urine Routine Lab 12/24/23 01:15 Received Radiology Impressions Head CT 12/23/23 14:14 IMPRESSION: 1. No evidence of intracranial hemorrhage or mass effect. 2. Mild small vessel changes. Mild parenchymal volume loss. 3. Chronic opacification of the LEFT greater than RIGHT mastoid air cells and LEFT middle ear. 4. No acute intracranial findings. Laboratory Results WBC 14.15 10^3/uL (3.29-11.43) H 12/24/23 04:12 RBC 3.68 10^6/uL (3.85-5.65) L 12/24/23 04:12 Hgb 10.80 g/dL (11.27-16.99) L 12/24/23 04:12 Hct 32.6 % (37-53) L 12/24/23 04:12 MCV 88.6 fl (82-101) 12/24/23 04:12 MCH 29.3 pg (27-33) 12/24/23 04:12 MCHC 33.1 g/dL (30-55) 12/24/23 04:12 RDW 13.1 % (12.1-15.1) 12/24/23 04:12 Plt Count 254 10^3/cmm (157-399) 12/24/23 04:12 MPV 9.1 fL (7.4-10.4) 12/24/23 04:12 Neut % (Auto) 81.2 % 12/24/23 04:12 Lymph % (Auto) 12.9 % 12/24/23 04:12 Cowley % (Auto) 4.7 % 12/24/23 04:12 Eos % (Auto) 0.4 % 12/24/23 04:12 Baso % (Auto) 0.4 % 12/24/23 04:12 Neut # (Auto) 11.51 10^3/uL (1.8-7.7) H 12/24/23 04:12 Lymph # (Auto) 1.8 10^3/uL (0.8-4.8) 12/24/23 04:12 Cowley # (Auto) 0.7 10^3/uL (0.2-0.9) 12/24/23 04:12 Eos # (Auto) 0.1 10^3/uL (0.0-0.8) 12/24/23 04:12 Baso # (Auto) 0.1 10^3/uL (0.0-0.1) 12/24/23 04:12 Nucleated RBC % (auto) 0 % 12/24/23 04:12 Nucleated RBCs # 0.0 /100WBC 12/24/23 04:12 Sodium 129 mmol/L (136-145) L 12/24/23 04:12 Potassium 3.9 mmol/L (3.5-5.1) 12/24/23 04:12 Chloride 94 mmol/L (98-107) L 12/24/23 04:12 Carbon Dioxide 21 mmol/L (22-29) L 12/24/23 04:12 Anion Gap 17.9 (5-19) 12/24/23 04:12 BUN 17 mg/dL (8-23) 12/24/23 04:12 Creatinine 0.9 mg/dL (0.7-1.2) 12/24/23 04:12 GFR Calculation 85.8 mL/min (90-130) L 12/24/23 04:12 Glucose 103 mg/dL (65-115) 12/24/23 04:12 Calculated Osmolality 270 mOsm/kg (285-295) L 12/24/23 04:12 Calcium 8.5 mg/dL (8.5-10.5) 12/24/23 04:12 Phosphorus 3.1 mg/dL (2.5-4.5) 12/24/23 04:12 Magnesium 1.8 mg/dL (1.7-2.3) 12/24/23 04:12 Total Bilirubin 0.4 mg/dL (0.15-1.2) 12/23/23 14:27 AST 18 U/L (0-40) 12/23/23 14:27 ALT 10 U/L (0-41) 12/23/23 14:27 Alkaline Phosphatase 61 U/L (40-130) 12/23/23 14:27 Total Protein 6.7 g/dL (6.6-8.7) 12/23/23 14:27 Albumin 3.8 g/dL (3.5-5.2) 12/23/23 14:27 Globulin 2.9 g/dL (1.3-4.6) 12/23/23 14:27 TSH 46.12 uIU/mL (0.27-4.20) H 12/23/23 14:19 Ur Random Sodium 27 mmol/L 12/24/23 01:15 Valproic Acid 52.3 ug/mL (50-100) 12/23/23 14:27 Vitals Last Vital Signs Temp 97.6 F 12/24/23 10:33 Pulse 86 12/24/23 10:33 Resp 17 12/24/23 10:33 BP 142/82 12/24/23 10:33 Pulse Ox 99 12/24/23 10:33 O2 Del Method Room Air 12/24/23 10:33 Discharge Plan Discharge Patient Disposition: Home Condition: Stable Prescriptions: New levothyroxine 137 mcg capsule 137 mcg PO DAILY Qty: 30 0RF Continued amitriptyline 25 mg tablet 50 mg PO BEDTIME divalproex 500 mg tablet extended release 24 hr 1,000 mg PO BEDTIME famotidine 20 mg tablet 20 mg PO BID acetaminophen 325 mg PO Q6H PRN (Reason: Pain) olanzapine 20 mg tablet 20 mg PO BEDTIME vilazodone 40 mg tablet 40 mg PO AC Zyrtec 10 mg Tablet 10 mg PO DAILY sodium chloride 1,000 mg Tablet,Soluble 1,000 mg PO TID FiberCon 625 mg Tablet 625 mg PO DAILY fluticasone propionate 50 mcg/actuation spray,suspension 1 spray INTRANASAL DAILY gabapentin 300 mg capsule 300 mg PO BID lorazepam 1 mg tablet 1 mg PO TID melatonin 5 mg Tablet 10 mg PO BEDTIME Miralax 17 gram/dose Powder 17 g PO DAILY Rx Instructions: Give 1 scoop by mouth one time a day for constipation naloxone 2 mg/2 mL Syringe Kit 2 mg IM PRN PRN (Reason: Opiod Overdose) Rx Instructions: NTExceed 10 mg total dose/episode acetaminophen 650 mg PO BEDTIME Senna Plus 2 tab PO DAILY Rx Instructions: 8.6-50mg Discontinued celecoxib [Celebrex] 200 mg capsule 200 mg PO DAILY levothyroxine 125 mcg capsule 125 mcg PO DAILY Discharge Orders: Discharge Order (Routine); Ordered 12/24/23 Ordered By: Donte Barbosa Referrals: [facility] [Provider Group] - 1 week (We have notified your physician's clinic of the need for a follow-up appointment to be scheduled. If you have not heard from them within the next 2 business days, please call them directly. ) Matt Mae MD [Primary Care Provider] - 4-7 days Patient Instructions: Levothyroxine (By mouth), Hyponatremia (GEN) Activity Restrictions/Additional Instructions: Please limit fluid intake to less than 1.5 L/day. Recheck sodium level with primary provider in office in 4 to 7 days. Follow-up with neurology for assessment of possible seizure. Follow-up with primary provider regarding hypothyroidism, TSH elevated at 46.12. Levothyroxine dose was increased up to 137.5 micrograms. Discharge Attestations Time Spent in Discharge Care*: greater than 30 min Quality Metrics Clinical Quality Measures [ No reported AMI, CVA or VTE this stay] Coding Level of Care Code 29699 Total time (in minutes) for Discharge: 40 Diagnoses Hyponatremia E87.1 Seizure R56.9
--- NOTE | 2023-12-24 13:17 | PC.NURSE ---
Report was called to Leticia at [facility] in [place], [place]. All questions addressed at this time.
[2023-12-24 13:32] VITALS: BP 142/82; PULSE 86; RESP 17; TEMP 36.4; O2SAT 99
[2023-12-26 16:20] LABS: Osmolality Urine 168 mOsm/kg (50-1200)
== END 2023-12-24 13:32 | disposition home or self-care (01) ==
LOC: ER 15:26 → MEDSURG 18:40
PROVIDERS: Admitting Provider Internal Medicine; Emergency Provider Emergency Medicine; PCP Family Medicine; Visit Provider Internal Medicine
DX: E87.1 Hypo-osmolality and hyponatremia (principal); R56.9 Unspecified convulsions; F84.0 Autistic disorder; F79 Unspecified intellectual disabilities; F20.9 Schizophrenia, unspecified; N18.9 Chronic kidney disease, unspecified; J81.1 Chronic pulmonary edema
CPT/HCPCS: 36415; 70450; 80048; 80053; 80164; 83735; 83935; 84100; 84295; 84300; 84443; 85025; 93005; 99285; G0378; J7030